=== PATIENT | male | born 1980 | race Asian ===

== ENCOUNTER 2020-10-22 13:28 | Emergency (ER) | payer BC, SELFPAY ==
--- NOTE | ~2020-10-22 | XR_ITS ---
EXAMINATION: XR foot LT min 3V DATE: 10/22/2020 13:42 INDICATION: Left foot pain TECHNIQUE: Dorsoplantar, lateral, and 2 oblique views of the left foot were obtained. COMPARISON: None. FINDINGS: There is plantar soft tissue swelling of the foot overlying the distal metatarsals. No frac ture is identified. Bone alignment is normal. The joint spaces are maintained. IMPRESSION: 1. Plantar soft tissue swelling of the foot without acute osseous abnormality. Reviewed, dictated and finalized at location B.
[2020-10-22 13:31] VITALS: BP 144/89; PULSE 117; RESP 18; TEMP 36.8; O2SAT 100
[2020-10-22 14:37] VITALS: BP 130/77; PULSE 80; RESP 16; TEMP 36.7; O2SAT 99
--- NOTE | 2020-10-22 16:03 | ED.LOWEXIN ---
HPI - Extremity Injury (Lower) General Chief Complaint: Extremity Injury, Lower Stated Complaint: left foot pain Time Seen by Provider: 10/22/20 15:01 Source: patient Mode of arrival: ambulatory Limitations: no limitations History of Present Illness HPI Narrative: Patient is a 40 year old male who presents complaining of left foot pain. Patient reports he was running 5 days ago when he felt a pop in foot. He reports increased pain with ambulation, denies other injuries. He denies taking otc medication prior to arrival. He denies all other complaints at this time. MD complaint: foot injury Review of Systems Review of Systems: Narrative: CONSTITUTIONAL: Denies fever, chills, or sweats. EYES: Denies visual changes, redness, or discharge. ENT: Denies rhinorrhea, congestion, sore throat, or otalgia. CARDIOVASCULAR: Denies chest pain, palpitations, or edema. RESPIRATORY: Denies cough or dyspnea. GASTROINTESTINAL: Denies abdominal pain, nausea, vomiting, or diarrhea. GENITOURINARY: Denies dysuria or hematuria. SKIN: Denies rash or itching. MUSCULOSKELETAL: Reports left foot pain NEUROLOGIC: Denies headache, numbness, dizziness, or weakness. PSYCHIATRIC: Denies anxiety or depression. [facility] Social History Social History (Updated 10/22/20 @ 16:21 by SARA Guo) Smoking status: Current every day smoker Tobacco type: cigarettes Alcohol intake: current Alcohol use details: Occasional Substance use: never Comments At the time of signature, I have reviewed and agree with nursing past medical, surgical, social, and family history unless otherwise noted. Please see nursing chart for further information. There is no relevant family history pertinent to the presenting complaint. Exam Narrative: Exam Narrative: GENERAL: Well-appearing, well-nourished, and in no acute distress. HEAD: Normocephalic, atraumatic. EYES: EOMI. No redness or drainage. Conjunctiva are normal. ENT: Mucous membranes pink and moist. CHEST: No respiratory distress. HEART: Regular rate and rhythm. EXTREMITIES: Normal range of motion. Tenderness with palpation and mild edema noted to left plantar foot. SKIN: Warm, dry, no rash. NEURO: No focal deficits. Alert and oriented x3. Gait steady. PSYCH: Normal affect. No signs of depression or anxiety. Course Vital Signs Vital signs: Vital Signs Temperature 36.8 C 10/22/20 13:31 Pulse Rate 117 H 10/22/20 13:31 Respiratory Rate 18 10/22/20 13:31 Blood Pressure 144/89 H 10/22/20 13:31 Pulse Oximetry 100 10/22/20 13:31 Temperature 36.7 C 10/22/20 14:37 Pulse Rate 80 10/22/20 14:37 Respiratory Rate 16 10/22/20 14:37 Blood Pressure 130/77 10/22/20 14:37 Pulse Oximetry 99 10/22/20 14:37 Reviewed. Patient has been instructed to follow-up with his PCP regarding his blood pressure. MDM - Extremity Injury (Lower) MDM Narrative Medical decision making narrative: Patient's x-ray shows no acute osseous abnormality. Discussed with patient most likely soft tissue injury. Discussed pain control and follow up care. Iván wrap for comfort. Patient agrees with plan of care, patient is stable for discharge to home with outpatient follow up as directed. Differential Diagnosis Differential diagnosis: Likely other (Sprain, strain, contusion, fracture) Critical Care Time Critical Care Time Critical Care Time: No Discharge Plan Discharge Clinical Impression: Soft tissue injury of foot Patient Disposition: Home, Self-Care Condition: Stable Instructions: Foot Contusion (ED) Additional Instructions: Use Iván wrap for comfort. You may take Tylenol or ibuprofen for pain. Follow-up with your PCP or podiatry in 3 to 5 days if symptoms persist. Follow-up/Referrals: PHYSICIAN,DRAMA TEACHER [Primary Care Provider] - Vasquez Hull MD [Physician] - Time of Disposition: 16:26
== END 2020-10-22 16:34 | disposition home or self-care (01) ==
PROVIDERS: Emergency Provider Nurse Practitioner
DX: S99.922A Unspecified injury of left foot, initial encounter (principal); F17.200 Nicotine dependence, unspecified, uncomplicated; X58.XXXA Exposure to other specified factors, initial encounter; Y93.02 Activity, running
CPT/HCPCS: 73630; 99283